=== PATIENT | male | born 1995 | race African-American/Black ===

== ENCOUNTER 2017-10-07 21:32 | Emergency (ER) | payer BC ==
[~2017-10-07] VITALS: Ht 177.8 cm; Wt 74.8 kg
--- NOTE | ~2017-10-07 | EKG ---
[address] [address] [place] [address] ELECTROCARDIOGRAM REPORT Name: JACKY ECHAVARRIA [facility] Room #: [facility] [id number] Admission: 10/07/17 Attend Phys: Discharge: 10/07/17 Date of : [birth year] Report #: [id number] THIS REPORT FOR: //name// [facility] ED Test Date: 2017-10-07 Test Time: 22:30:09 Pat Name: JACKY ECHAVARRIA Department: Room: Gender: [employer]: [place] : 1995 Requested By: Jareth Mcneill Order Number: [id number] MD: Mynor Huggins Measurements Intervals [place] Rate: 85 P: -22 KS: 150 QRS: 55 QRSD: 65 T: 46 QT: 346 QTc: 412 Interpretive Statements Sinus rhythm ST elev, probable normal early repol pattern No previous ECG available for comparison Electronically Signed On 10-09-2017 9:15:53 CDT by Mynor Huggins [email or web address] <ELECTRONICALLY SIGNED> By: Mynor Huggins MD, [facility] 10/09/17 0915 2230 29 Mynor Huggins MD, FACC /EPI
[2017-10-07 23:01] VITALS: BP 128/70
== END 2017-10-07 23:02 | disposition home or self-care (01) ==
LOC: ER 21:32
DX: R07.9 Chest pain, unspecified (principal)